=== PATIENT | female | born 1980 | race Caucasian/White ===

== ENCOUNTER 2018-01-02 07:27 | Inpatient (IN) | payer MEDICAID ==
[2018-01-02 09:30] LABS: URINE BLOOD (Dip) POC Trace-intact (NEGATIVE); URINE GLUCOSE (Dip) POC Negative (NEGATIVE); URINE KETONES (Dip) POC Negative (NEGATIVE); URINE LEUKOCYTE EST (Dip) POC Negative (NEGATIVE); URINE NITRITE (Dip) POC Negative (NEGATIVE); URINE TOTAL PROTEIN POC Negative (NEGATIVE)
[2018-01-02] MEDS ORDERED: ONDANSETRON 4 MG INJ IV (11:00)
[2018-01-02] MEDS ORDERED: ACETAMINOPHEN 325 MG TAB PO (11:00)
[2018-01-02] MEDS ORDERED: LACTATED RINGER'S 1,000 ML IV (17:30)
[2018-01-02 19:42] LABS: ADD MAN DIFF? NO
[2018-01-02 19:44] LABS: BASOPHILS % 0.4 % (0.0-2.0); EOSINOPHILS # 0.2 10^3/ul (0.0-0.5); EOSINOPHILS % 1.7 % (0.0-7.0); HEMATOCRIT 43.9 % (37.0-47.0); HEMOGLOBIN 14.2 g/dl (12.0-16.0); LYMPHOCYTES # 4.2 10^3/ul (0.8-2.9); LYMPHOCYTES % 43.3 % (15.0-51.0); MEAN CORPUSCULAR HGB CONC 32.3 g/dl (32.0-37.0); MEAN CORPUSCULAR VOLUME 92.8 fl (82.0-101.0); MONOCYTE # 0.6 10^3/ul (0.3-0.9); NEUTROPHIL # 4.7 10^3/ul (1.6-7.5); NEUTROPHILS % 48.2 % (39.0-77.0); PLATELET COUNT 385 10^3/UL (140-415); RED BLOOD COUNT 4.73 10^6/ul (4.20-5.40); RED CELL DISTRIBUTION WIDTH 13.4 % (11.5-14.5)
[2018-01-02 19:44] LABS: WHITE BLOOD COUNT 9.7 10^3/ul (4.8-10.8)
[2018-01-02] MEDS: ACETAMINOPHEN 325 MG TAB PO (19:59)
[2018-01-04] MEDS ORDERED: CEFAZOLIN 1 GM INJ (07:00)
[2018-01-04] MEDS ORDERED: PROPOFOL 20 ML (07:56)
[2018-01-04] MEDS ORDERED: LIDOCAINE 2% (SDV) 5 ML INJ (07:57)
[2018-01-04] MEDS ORDERED: ROCURONIUM 50 MG INJ (07:57)
[2018-01-04] MEDS ORDERED: FENTAnyl 50 MCG/ML VIAL (07:57)
[2018-01-04] MEDS ORDERED: MIDAZOLAM 1 MG/ML 2 ML INJ (07:57)
[2018-01-04] MEDS ORDERED: ONDANSETRON 4 MG INJ (07:57)
[2018-01-04] MEDS ORDERED: FAMOTIDINE 20 MG INJ (07:58)
[2018-01-04] MEDS ORDERED: DEXAMETHASONE 4 MG/ML 1 ML INJ (07:59)
[2018-01-04] MEDS ORDERED: SUGAMMADEX SODIUM 200 MG/2 ML VIAL IV (09:19)
[2018-01-04] MEDS ORDERED: KETOROLAC 30 MG INJ (09:23)
[2018-01-04] MEDS ORDERED: OXYCODONE/ACETAMINOPHEN (5/325) TAB PO (10:00)
[2018-01-04] MEDS ORDERED: morphine (1 MG/ML) 10ML SYRINGE IV (10:00)
[2018-01-04] MEDS ORDERED: ONDANSETRON 4 MG INJ IV (10:00)
[2018-01-04] MEDS ORDERED: FENTAnyl 50 MCG/ML VIAL IV (10:00)
[2018-01-04] MEDS ORDERED: MEPERIDINE 25 MG INJ IV (10:00)
[2018-01-04] MEDS ORDERED: HYDROmorphONE 1 MG/5 ML IV SYRINGE IV (10:00)
[2018-01-04] MEDS ORDERED: DIPHENHYDRAMINE 50 MG INJ IV (10:00)
== END 2018-01-04 13:43 | disposition home or self-care (01) | DRG 761 ==
LOC: FTE 07:27 → MS3 10:59
PROC: 0UPD8HZ Removal of Contraceptive Device from Uterus and Cervix, Via Natural or Artificial Opening Endoscopic (ICD-10-PCS; principal; 2018-01-04 08:00)
DX: T83.39XA Other mechanical complication of intrauterine contraceptive device, initial encounter (principal); Y76.8 Miscellaneous obstetric and gynecological devices associated with adverse incidents, not elsewhere classified
CPT/HCPCS: 36415; 72192; 76830; 76856; 81003; 81025; 84702; 85025; 86900; 86901; 88300; 99285-25